=== PATIENT | female | born 1955 | race Caucasian/White ===

== ENCOUNTER → 2020-01-06 | Outpatient (CLI) | payer MEDICARE, BC ==
--- NOTE | 2020-01-07 11:24 | MM ---
Reason for exam: screening (asymptomatic). Last mammogram was performed 2 years and 7 months ago. History: Patient is postmenopausal. Took hormonal contraceptives for 2 years. Physical Findings: A clinical breast exam by your physician is recommended on an annual basis and results should be correlated with mammographic findings. MG 3D Screening Mammo W/Cad Bilateral CC and MLO view(s) were taken. Prior study comparison: June 14, 2017, bilateral MG screening mammo w CAD. April 08, 2013, mammogram, performed at [facility]. There are scattered fibroglandular densities. Stable benign calcifications. There is no discrete abnormality. No significant changes when compared with prior studies. ASSESSMENT: Benign, BI-RAD 2 RECOMMENDATION: Routine screening mammogram of both breasts in 1 year.
== END | disposition home or self-care (01) ==
LOC: RADMAMWWP 13:55
PROVIDERS: ATTEND Family Medicine
DX: Z12.31 Encounter for screening mammogram for malignant neoplasm of breast (principal)
CPT/HCPCS: 77063; 77067

== ENCOUNTER → 2023-05-16 | Outpatient (CLI) | payer MEDICARE ==
--- NOTE | 2023-05-16 13:13 | BD ---
EXAMINATION TYPE: Axial Bone Density DATE OF EXAM: 05/16/2023 CLINICAL HISTORY: 67 years old Female. ICD-10 CODE: Z78.0 ASYMPTOMATIC MENOPAUSAL Height: 65in Weight: 198lb FRAX RISK QUESTIONS: Family History (Parent hip fracture): yes History of Fracture in Adulthood: yes Secondary Osteoporosis: RISK FACTORS HISTORY OF: History of Wrist Fracture: yes, right When: 10+ years ago Surgery to Spine/Hip(right/left)/Wrist (right/left): right wrist When: 10+ years ago Active: yes Postmenopausal woman: yes Lost more than 2 inches in height since high school: yes MEDICATIONS: Additional Medications: calcium with vitamin d Additional History: EXAM MEASUREMENTS: Bone mineral densitometry was performed using the [employer] System. Bone mineral density as measured about the Lumbar spine is: ----- L1-L4(G/cm2): 1.359 T Score Values are as follows: ----- L1: 0.3 ----- L2: 0.5 ----- L3: 1.9 ----- L4: 2.6 ----- L1-L4: 1.5 Z Score Values are as follows: ----- L1: 1.1 ----- L2: 1.3 ----- L3: 2.7 ----- L4: 3.4 ----- L1-L4: 2.3 Bone mineral density has: Increased 2.6% since study of: 06-14-2017 Bone mineral density about the R hip (g/cm2): 1.001 Bone mineral density about the L hip (g/cm2): 1.091 T Score values are as follows: -----R Neck: -0.9 -----L Neck: -0.4 -----R Total: -0.1 -----L Total: 0.7 Z Score values are as follows: -----R Neck: 0.2 -----L Neck: 0.7 -----R Total: 0.7 -----L Total: 1.5 Bone mineral density has: Decreased -4.1% since study of: 06-14-2017 FRAX%s: The graph provided illustrates a 21.1% chance for a major osteoporotic fx and a 1.8% chance f or the hips probability for fx in 10 years time. IMPRESSION: Normal (Values between +1 and -1 indicate normal bone mass). Consider repeating this study in 5 year s or sooner if there is some new clinical indication. NOTE: T-SCORE=SD OF THE YOUNG ADULT MEAN.
--- NOTE | 2023-05-20 06:36 | MM ---
Reason for Exam: Screening (asymptomatic). Last mammogram was performed 3 year(s) and 4 month(s) ago. Patient History: Menarche at age 14. First Full-Term at age 17. Postmenopausal. Patient used Hormonal Contraceptives for 2 years. Risk Values: Mildred 5 year model risk: 1.1%. NCI Lifetime model risk: 3.7%. Prior Study Comparison: 04/08/2013 Screening Mammogram, [facility]. 06/14/2017 Bilateral Screening Mammogram, [facility]. 01/06/2020 Bilateral Screening Mammogram, [facility]. Tissue Density: There are scattered fibroglandular densities. Findings: Analyzed By CAD. Subareolar asymmetric density left breast remains unchanged. There is no suspicious group of microcalcifications or new suspicious mass in either breast. Overall Assessment: Benign, BI-RAD 2 Management: Screening Mammogram of both breasts in 1 year. . Patient should continue monthly self-breast exams. A clinical breast exam by your physician is recommended on an annual basis. This exam should not preclude additional follow-up of suspicious palpable abnormalities. Note on Mildred scores and lifetime risk: 1. A Mildred score greater than 3% is considered moderate risk. If this is the case, consider specialist referral to assess eligibility for a risk reducing agent. 2. If overall lifetime risk for the development of breast cancer is 20% or higher, the patient may qualify for future screening with alternating mammogram and breast MRI. Electronically signed and approved by: Lc Duran M.D. Radiologist
== END | disposition home or self-care (01) ==
LOC: RADBDWWP 12:36
PROVIDERS: ATTEND Family Medicine
DX: Z12.31 Encounter for screening mammogram for malignant neoplasm of breast (principal); Z78.0 Asymptomatic menopausal state
CPT/HCPCS: 77063; 77067; 77080

== ENCOUNTER → 2023-07-11 | Outpatient (CLI) | payer MEDICARE ==
--- NOTE | 2023-07-11 12:24 | P.SLEEP ---
History of Present Illness DATE: 07/11/2023 CONSULTATION/NEW PATIENT EVALUATION HISTORY OF PRESENT ILLNESS/SLEEP-WAKE EVALUATION: 67-year-old lady had been ev aluated in the sleep center for possible obstructive sleep apnea hypopnea syndrome. SLEEP SCHEDULE: Usually sleep schedule from 11 PM to 7 AM 7 days a week. FALLING ASLEEP: No problems with falling asleep. DURING SLEEP: Patient has loud snoring and awakenings from sleep one time with nocturia. Patient is using nasal strips to help breathing better during the sleep. Positive history of episodes of gasping for air, choking and restless leg symptoms. No history of hypnogogical hallucinations, sleep paralysis, or cataplexy. DURING THE DAY/WAKE STATE: If patient feels sleepiness during the day, has problems with memory, concentration and anxiety. [place] sleepiness scale is 2. Usually patient doesn't take naps. PAST MEDICAL HISTORY: Episode of cardiac arrhythmia. PAST SURGICAL HISTORY: Appendectomy, fracture of right wrist. MEDICATIONS: None other present time. SOCIAL HISTORY: Positive history of smoking for about 15 pack years quit in 1999, no alcohol consumption. FAMILY HISTORY: Cardiac arrhythmia, hypertension, stroke, acid reflux. REVIEW OF SYSTEMS: Snoring, awakenings from sleep, feeling sleepiness during the day. No fevers. No double vision. No recent chest pain. No shortness of breath. No abdominal pain. No bleeding episodes. No blood in urine. No seizure episodes. PHYSICAL EXAMINATION: GENERAL: A pleasant patient without any distress. VITAL SIGNS: BP 159/79, HR 66, RR 16, weight 201.8 pounds, height 5 foot 5.5 inches, body mass index 32.6. HEENT: PERRLA, EOMI. Evaluation of oropharynx showed tongue protrudes midline, low position of soft palate Mallampati 4, retrognathia about 2 mm . NECK: Supple. No JVD. Thyroid is not palpable 15.5 inches in circumference. LUNGS: Clear to percussion and to auscultation. Good air exchange. No wheezing or rhonchi. HEART: S1, S2 regular. No murmurs, gallops or rubs. ABDOMEN: Soft and nontender. Bowel sounds are present. No organomegaly appreciated. EXTREMITIES: No clubbing or cyanosis. BACK TUFTER: Awake, alert, and oriented x3. Cranial nerves 2 to 7 intact. There is no fasciculation or atrophy noted. No focal deficits observed. ASSESSMENT: 1. Snoring, awakenings from sleep, extremely low position of soft palate Mallampati 4, retrognathia about 2 mm, feeling sleepiness during the day. Obstructive sleep apnea hypopnea syndrome. 2. Mild obesity, body mass index 32.6. 3. Hypertension in the office today. 4. History of episodes of cardiac arrhythmia. 5 history of restless leg symptoms. PLAN: 1. Polysomnography for evaluation of patient's breathing during sleep. 2. Following plan after reading sleep study . 3. Preferable position during sleep on the side. 4. No driving if patient feels any sleepiness. Patient is aware of civil and criminal liability for unsafe driving. 5. Sleep hygiene with regular sleep time for at least 7.5-8 hours. 6. Watching and losing weight. Thank you very much for referring this patient for consultation. Sincerely, Farooq Gordillo MD, PhD, FAASM. Diplomat of [place] [employer], Sleep Medicine Board by [place] [employer] [place] [employer] Superintendent [employer] [facility] [place] [facility] - Sleep Note Sleep Note: Temperature: Pulse Rate: Respiratory Rate: Blood Pressure: SpO2: Height: Weight: BMI: Neck Circumference:
== END ==
LOC: 3 N SLEEP 11:32
PROVIDERS: ATTEND Internal Medicine
DX: G47.33 Obstructive sleep apnea (adult) (pediatric) (principal); E66.9 Obesity, unspecified; I10 Essential (primary) hypertension; I49.9 Cardiac arrhythmia, unspecified; G25.81 Restless legs syndrome; R06.83 Snoring; Z68.32 Body mass index [BMI] 32.0-32.9, adult
CPT/HCPCS: 99211

== ENCOUNTER → 2024-05-06 | Outpatient (CLI) | payer MEDICARE ==
--- NOTE | 2024-05-06 11:50 | CA ---
Exercise Stress Test Report Name: Maria T Rhoades Exam Date: 05/06/2024 09:50 Exam Location: [facility] Ht (in): 65 Wt (lb): 199 BSA: 1.97 Ordering Phys: Margaret Wyman MD Referring Phys: MARGARET WYMAN Technologist: Lucien Richardson Age: 68 Gender: F : 1955 Procedure CPT: Indications: R06.02 Shortness of breath R07.9 chest pain ICD-10 Codes: Patient History: DIFFICULTY IN BREATHING, PALPITATIONS, FAMILY HX OF HEART DISEASE, PRIOR SMOKER Medications: MULTIVITAMIN, FISH OIL, TUMERIC Meds past 24 hrs: Pretest Chest Pain: STRESS TEST Mason Protocol Exercise Duration (min:sec): 07:[address] Depressions (mm): Angina Score: Mccullough Score: Resting HR (bpm): 77 Peak HR (bpm): 128 Resting BP (mmHg): 174 / 83 Peak BP (mmHg): 193 / 63 MPHR: 151 Target HR: 128 % MPHR: 85 METS: 10.3 Total Dose: Peak Dose: Atropine: Double Product: 62935 BP Response: Stress Termination: TARGET HR/MAX EXERTION Stress Symptoms: SHORTNESS OF BREATH Stress Summary: ECG ANALYSIS Resting ECG: Normal sinus rhythm normal axis normal intervals Stress ECG: Patient exercised on Mason protocol for 7 minutes and 30 seconds achieving 9 METS 85% of predicted maximal heart rate without chest pain or diagnostic ST segment depression CONCLUSIONS Average exercise tolerance Negative stress test by EKG criteria Dr. Gavino Pearson MD (Electronically Signed) Final Date: 06 May 2024 11:49
== END | disposition home or self-care (01) ==
LOC: RADNMMAIN 09:04
PROVIDERS: ATTEND Family Medicine
CPT/HCPCS: 93017

== ENCOUNTER → 2024-06-22 | Outpatient (CLI) | payer MEDICARE ==
--- NOTE | 2024-06-29 08:12 | MM ---
Reason for Exam: Screening (asymptomatic). Last mammogram was performed 1 year(s) and 1 month(s) ago. Patient History: Menarche at age 14. First Full-Term at age 17. Postmenopausal. Patient used Hormonal Contraceptives for 2 years. Risk Values: Mildred 5 year model risk: 1.1%. NCI Lifetime model risk: 3.5%. Prior Study Comparison: 06/14/2017 Bilateral Screening Mammogram, [facility]. 01/06/2020 Bilateral Screening Mammogram, [facility]. 05/16/2023 Bilateral MG 3D screening mammo w/cad, [facility]. Tissue Density: The breasts are heterogeneously dense, which may obscure small masses. Findings: Analyzed By CAD. There is no suspicious group of microcalcifications or new suspicious mass in either breast. Benign-appearing calcifications. Overall Assessment: Benign, BI-RAD 2 Management: Screening Mammogram of both breasts in 1 year. . Patient should continue monthly self-breast exams. A clinical breast exam by your physician is recommended on an annual basis. This exam should not preclude additional follow-up of suspicious palpable abnormalities. Note on Mildred scores and lifetime risk: 1. A Mildred score greater than 3% is considered moderate risk. If this is the case, consider specialist referral to assess eligibility for a risk reducing agent. 2. If overall lifetime risk for the development of breast cancer is 20% or higher, the patient may qualify for future screening with alternating mammogram and breast MRI. [facility], , 06/29/2024 8:09 AM. Electronically signed and approved by: Warren Coates DO
== END | disposition home or self-care (01) ==
LOC: RADMAMWWP 11:17
PROVIDERS: ATTEND Family Medicine
DX: Z12.31 Encounter for screening mammogram for malignant neoplasm of breast (principal); Z78.0 Asymptomatic menopausal state; R92.333 Mammographic heterogeneous density, bilateral breasts
CPT/HCPCS: 77063; 77067